=== PATIENT | male | born 1965 | race Caucasian/White ===

== ENCOUNTER → 2017-02-27 | Outpatient (CLI) | payer BC ==
--- NOTE | 2017-02-27 17:40 | CT ---
EXAMINATION TYPE: CT lumbar spine wo con DATE OF EXAM: 02/27/2017 5:09 PM COMPARISON: NONE HISTORY: Low back and right leg pain CT DLP: [id number] mGycm Automated exposure control for dose reduction was used. Unenhanced CT of the lumbar spine was performed. Bone and soft tissue window settings are submitted as well as coronal and sagittal reconstructions. Lumbar vertebra have fairly normal spacing and alignment. There is metal artifact from the multilevel posterior fusion surgery from L3 to S1. There is no lumbar paraspinal mass. There is no compression fracture. There is multilevel lumbar laminectomy defect. Spinal canal is obscured to some and agree w ith the metal artifact. Sacroiliac joints appear normal. I see no focal bone destruction. There is hy pertrophic spurring of the endplates anteriorly from L2 to S1. There is some narrowing of the spinal canal at L2-3 at the upper end of the fusion surgery due to facet arthropathy. IMPRESSION: Previous surgery. Mild hypertrophic degenerative spurring without significant disc space narrowing. N o change compared to MR scan of 03/13/2016. There is mild relative narrowing of the spinal canal at th e L2-3 level related to facet arthropathy that is probably increased slightly compared to old MR scan .
== END | disposition home or self-care (01) ==
LOC: RADCTMAIN 16:44
PROVIDERS: ATTEND Neurological Surgery
DX: M48.061 Spinal stenosis, lumbar region without neurogenic claudication (principal); M51.16 Intervertebral disc disorders with radiculopathy, lumbar region; M46.86 Other specified inflammatory spondylopathies, lumbar region
CPT/HCPCS: 72131

== ENCOUNTER → 2017-03-15 | Outpatient (CLI) | payer BC ==
[2017-03-15 13:16] LABS: Blood Urea Nitrogen 8 mg/dL (9-20); Non-African American GFR(MDRD) >60 (>60 ml/min/1.73 sqM)
--- NOTE | 2017-03-16 00:13 | MR ---
EXAMINATION TYPE: MR lumbar spine wo/w con DATE OF EXAM: 03/15/2017 COMPARISON: 03/13/2016 HISTORY: 51-year-old male back pain into right leg and foot Technique: Multiplanar, multisequence images of the lumbar spine were obtained before and after admin istration of 9 mL intravenous Gadavist gadolinium contrast. FINDINGS: Severe metal hardware artifact degrading assessment especially in the right-sided neural foramina. Post surgical changes of L3-S1 posterior fusion with corresponding laminectomies Mild bulging disc above the fusion at L2-L3 mildly narrowing the spinal canal, similar to prior. Otherwise, no evidence for spinal canal stenosis along the fused fused levels. On the left at L3-L4, there is mild narrowing of the neuroforamen. On the right at L5-S1, there is mild narrowing of the neuroforamen. Difficult to exclude a right para central herniation which could be abutting the traversing right S1 nerve root, refer to sagittal post contrast image 10 and sagittal T1 precontrast. Axial image 2. No prevertebral or paravertebral soft tissue abnormality seen. Vertebral body heights are preserved and alignment is maintained. No suspicious bone marrow replaceme nt identified. IMPRESSION: 1. Postsurgical changes of L3-S1 posterior fusion with corresponding laminectomies. Extensive metal h ardware artifact limiting assessment. Artifacts are accentuated by the high 3 Mandy magnet strength. In the future, consider imaging on a 1.5 Mandy magnet. 2. Extensive artifacts make assessment of the right-sided L3 through L5 neuroforamen essentially nond iagnostic. 3. Possible residual or recurrent right-sided L5-S1 disc herniation that could abut the traversing ri ght S1 nerve root. This seems larger from 03/13/16. 4. There is mild neuroforaminal stenosis on the right at L5-S1 and on the left at L3-L4. 5. Mild disc bulge above the fusion at L2-L3, mildly narrowing the spinal canal, similar to prior. No canal compromise.
== END | disposition home or self-care (01) ==
LOC: RADMRIMAIN 12:32
PROVIDERS: ATTEND Neurological Surgery
DX: M48.061 Spinal stenosis, lumbar region without neurogenic claudication (principal); M51.16 Intervertebral disc disorders with radiculopathy, lumbar region; M99.73 Connective tissue and disc stenosis of intervertebral foramina of lumbar region; Z98.1 Arthrodesis status; R94.4 Abnormal results of kidney function studies
CPT/HCPCS: 82565; 84520; 72158; A9581